=== PATIENT | male | born 1965 | race Two or more races ===

== ENCOUNTER 2022-12-17 14:48 | Emergency (ER) | payer MEDICAID, OTHER ==
[~2022-12-17] VITALS: Ht 162.6 cm; Wt 83.9 kg
[2022-12-17 15:18] LABS: Urine Bacteria NONE SEEN /hpf (None Seen); Urine Blood Negative /uL (Negative); Urine Mucus FEW (None Seen); Urine Specific Gravity 1.029 (1.001-1.035); Urine WBC 1 /hpf (0 - 3)
[2022-12-17] MEDS ORDERED: TRAM-297 PO (16:13)
[2022-12-17] MEDS ORDERED: CIPR-173 PO (16:42)
[2022-12-17 16:43] VITALS: BP 137/77
== END 2022-12-17 16:43 | disposition home or self-care (01) ==
LOC: ER 14:48
DX: N43.3 Hydrocele, unspecified (principal)
CPT/HCPCS: 76870; 81001